=== PATIENT | female | born 1980 | race Caucasian/White ===

== ENCOUNTER → 2018-06-16 16:42 | Outpatient (CLI) | payer BC, MEDICAID, SELFPAY ==
[2018-06-16 20:11] LABS: Chlamydia Trachomatis by PCR Negative (Negative); Neisserai gonorrhoeae by PCR Negative (Negative); Probe Check PASS; Sample Adequacy Control PASS; Specimen Processing Control PASS
[2018-06-20 15:01] LABS: HPV Reflexed? NOT INDICATED
== END ==
PROVIDERS: Visit Provider Obstetrics & Gynecology
DX: Z11.3 Encounter for screening for infections with a predominantly sexual mode of transmission (principal); Z12.4 Encounter for screening for malignant neoplasm of cervix
CPT/HCPCS: 87491; 87591; 87624; 88175; G0145

== ENCOUNTER → 2018-07-12 16:04 | Outpatient (CLI) | payer BC, MEDICAID, SELFPAY ==
[2018-07-12 17:37] LABS: Color, Urine Yellow (Yellow); Glucose, Dipstick Normal (Normal); Ketone-Dipstick Negative (Negative); Leukocyte Esterase-Dipstick Negative /ul (Negative); Nitrite-Dipstick Negative (Negative); Occult Blood-Urine 50 /ul (Negative); Protein-Dipstick Negative (Negative); Specific Gravity, Urine 1.015 (1.002-1.030); Urine Bilirubin Dipstick Negative (Negative); Urine Clarity Clear (Clear); Urine Urobilinogen Normal (Normal)
[2018-07-12 17:45] LABS: Amphetamine Urine VISTA NEGATIVE (<1000 ng/mL); Barbiturate Urine VISTA NEGATIVE (< 200 ng/mL); Benzodiazepine Urine VISTA NEGATIVE (< 200 ng/mL); Cocaine Urine VISTA NEGATIVE (< 300 ng/mL); Ecstacy Urine VISTA NEGATIVE (< 500 ng/mL); Methadone Urine VISTA NEGATIVE (< 300 ng/mL); PCP Urine VISTA NEGATIVE (< 25 ng/mL); THC Urine VISTA NEGATIVE (< 50 ng/mL); Vista UDS pH Range 7
[2018-07-12 17:47] LABS: Absolute Lymphocyte Count 2.65 X10^3/ul (0.83-4.51); Basophil# 0.02 X10^3/uL; Basophil% 0.1 % (0-1); Eosinophil# 0.17 X10^3/uL; Eosinophils% 1.2 % (0-5); Hematocrit 37.5 % (37-47); Hemoglobin 12.6 g/dl (12.0-15.0); Lymphocyte # 2.65 X10^3/ul (4.0); Lymphocyte % 19.4 % (19-41); Mean Corp Hgb Conc 33.6 g/gl (32-36); Mean Corpuscular Hgb 30.4 pg (27.0-32.0); Mean Corpuscular Volume 90.6 fL (81-99); Mean Platelet Vol. 10.7 fl (6.2-12.0); Monocyte# 0.71 X10^3/uL; Monocyte% 5.2 % (0-10); Neutrophil # 10.03 X10^3/uL (2.7-7.7); Neutrophil % 73.7 % (47-70); Platelet Count 261 K/mm3 (150-450); RBC Distribution Width CV 12.6 % (11.6-14.6); RBC Distribution Width SD 40.9 fl (35.1-43.9); Red Blood Count 4.14 M/mm3 (4.2-5.4); White Blood Count 13.6 K/mm3 (4.4-11.0)
[2018-07-12 17:48] LABS: POSITIVE COUNT NO; POSITIVE DIFFERENTIAL NO; POSITIVE MORPHOLOGY NO
[2018-07-12 17:59] LABS: Thyroid Stim Hormone (TSH) 1.76 uIU/mL (0.358-3.74)
[2018-07-12 18:40] LABS: HIV - WCH Non-Reactive (Nonreactive); Rubella IgG 145.7 IU/mL
[2018-07-14 07:39] LABS: Prenatal RPR NONREACTIVE (NONREACTIVE)
[2018-07-14 11:13] LABS: HEPATITIS B SURFACE AG Negative (Negative); Hep C Antibodies <0.1 s/co ratio (0.0-0.9)
== END ==
PROVIDERS: Visit Provider Obstetrics & Gynecology
DX: Z34.82 Encounter for supervision of other normal pregnancy, second trimester (principal)
CPT/HCPCS: 36415; 80307; 81002; 84443; 85025; 86703; 86762; 86803; 87340

== ENCOUNTER → 2018-09-01 15:40 | Outpatient (CLI) | payer MEDICAID, SELFPAY | PROVIDERS: Referring Provider Obstetrics & Gynecology; Visit Provider Obstetrics & Gynecology | DX: Z34.82 Encounter for supervision of other normal pregnancy, second trimester (principal); R30.0 Dysuria; R10.9 Unspecified abdominal pain | CPT/HCPCS: 87086; 87088; 87186 ==

== ENCOUNTER → 2018-11-10 | Outpatient (CLI) | payer MEDICAID, SELFPAY ==
[2018-11-10 15:50] LABS: Hematocrit 34.5 % (37-47); Hemoglobin 11.6 g/dl (12.0-15.0); Mean Corp Hgb Conc 33.6 g/gl (32-36); Mean Corpuscular Hgb 30.4 pg (27.0-32.0); Mean Corpuscular Volume 90.3 fL (81-99); Platelet Count 260 K/mm3 (150-450); RBC Distribution Width CV 12.8 % (11.6-14.6); RBC Distribution Width SD 41.2 fl (35.1-43.9); Red Blood Count 3.82 M/mm3 (4.2-5.4); White Blood Count 12.2 K/mm3 (4.4-11.0)
[2018-11-10 15:56] LABS: Glucose Challenge Gest 1H 50g 78 mg/dL (70-140)
[2018-11-10 15:57] LABS: Scan Indicated on CBC? Y/N NO
== END | disposition home or self-care (01) ==
LOC: WOBLAB 13:02
PROVIDERS: Visit Provider Obstetrics & Gynecology
DX: Z34.83 Encounter for supervision of other normal pregnancy, third trimester (principal)
CPT/HCPCS: 36415; 82950; 85027

== ENCOUNTER → 2019-01-05 | Outpatient (CLI) | payer MEDICAID, SELFPAY | END | disposition home or self-care (01) | LOC: LABSPEC 16:34 | PROVIDERS: Visit Provider Obstetrics & Gynecology | DX: Z36.85 Encounter for antenatal screening for Streptococcus B (principal) | CPT/HCPCS: 87077; 87081; 87186 ==

== ENCOUNTER 2019-02-02 12:45 | Inpatient (IN) | payer MEDICAID, SELFPAY ==
[2019-02-02 13:16] VITALS: BMI 38.0
[2019-02-02] MEDS: Lactated Ringers 1,000 ML 50 ML IV (13:35)
[2019-02-02 13:51] LABS: Absolute Lymphocyte Count 1.92 X10^3/uL (0.83-4.51); Absolute Neutrophil Count 10.1 X10^3/uL (2.0-7.7); Basophil# 0.06 X10^3/uL; Basophil% 0.5 % (0-1); Eosinophil# 0.15 X10^3/uL; Eosinophils% 1.1 % (0-5); Hematocrit 33.3 % (37-47); Hemoglobin 10.8 g/dL (12.0-15.0); Lymphocyte # 1.92 X10^3/ul (4.0); Lymphocyte % 14.5 % (19-41); Mean Corp Hgb Conc 32.4 g/dL (32-36); Mean Corpuscular Hgb 28.3 pg (27.0-32.0); Mean Corpuscular Volume 87.2 fL (81-99); Mean Platelet Vol. 10.5 fl (6.2-12.0); Monocyte# 0.91 X10^3/uL; Monocyte% 6.9 % (0-10); NRBC Flagged by Analyzer 0 % (0-5); Neutrophil # 10.05 X10^3/uL (2.7-7.7); Neutrophil % 76.1 % (47-70); Platelet Count 261 K/mm3 (150-450); RBC Distribution Width CV 13.6 % (11.6-14.6); RBC Distribution Width SD 42.5 fl (35.1-43.9); Red Blood Count 3.82 M/mm3 (4.2-5.4); White Blood Count 13.2 K/mm3 (4.4-11.0)
[2019-02-02] MEDS: 0.9% Saline Lock 10 ML Syringe IV (22:36)
[2019-02-03] MEDS: Lactated Ringers 500 ML 999 ML IV (03:49)
[2019-02-03] MEDS: fentaNYL-bupivacaine (epidural) 100 ML BAG EPIDURAL ×4 (05:56→19:12)
[2019-02-03] MEDS: Lactated Ringers 1,000 ML 200 ML IV ×3 (07:25→20:59)
[2019-02-03] MEDS: Oxytocin 30 units/NS 500 ml 30 UNITS/500 ML IV.SOLN IV (09:17)
--- NOTE | 2019-02-03 10:29 | PCM.HP.BLA ---
History and Physical Date of Admission: 02/02/19 History of this : 38 yo female Ab1 with EDC 02/01/2019 by 7 weeks 1 day Ultrasound, presents to Labor and Delivery. care remarkable for - Oligohydramnios, Bilateral Hydrocele, BPP 01/18 40 weeks 1 day, Marginal Previa 1.4cm from cx, STEPHEN WNL and AGA at 28 weeks 1 day -- repeat u/s 32-24 wks resolved; Recent bleeding at 40+ weeks gestation; Plan Cytotec induction then AROM with Pitocin. Pertinent Past Medical History: non-smoker Allergies: Sulfa (Sulfonamide Antibiotics)Medications: During - Macrobid 100 mg capsule; phenazopyridine 200 mg tablet; 28 mg iron-800 mcg tablet; promethazine 12.5 mg tablet; Macrobid 100 mg capsule; phenazopyridine 200 mg tablet Review of Systems: Non-contributory PHYSICAL EXAMINATION General Appearence: 38 yo female in no acute distress Vital Signs: AF, VSS Heart: RRR without rubs or gallops Lungs: CTA x 2 Breasts: deferred Abdomen: gravid Pelvis: Cervix: 1-2/50/High Presentation: cephalic Fetus: Size: AGA Movement: present Heart: present Impression /Plan: Intrauterine . Preparations in progress for delivery. Plan cytotec inducion then AROM.
[2019-02-03] MEDS: Ondansetron 4 MG/2 ML Vial IV (15:16)
[2019-02-03] MEDS: Oxytocin 30 units/NS 500 ml 30 UNITS/500 ML IV.SOLN 334 UNITS IV (22:50)
--- NOTE | 2019-02-03 23:12 | PCM.OPRPT ---
Vaginal Delivery Maternal Presentation: Medically Indicated Induction Method of Induction: Cytotec Medical Reason for Induction: - - Third Trimester Bleeding at 40+ weeks gestation Amniotic Membrane Rupture Type: Artificial Amniotic Fluid Description: Clear Final PIYUSH: 02/01/19 Final PIYUSH Source: US <20 weeks Gestational age: 40 Weeks and 2 Days Date of Procedure: 02/03/19 Pre-Operative Diagnosis: IUP Post-Operative Diagnosis: IUP Surgery/ Procedure Performed: Vacuum Assisted Vaginal Delivery Type of Anesthesia: Epidural Description of Procedure: Spontaneous vaginal delivery of a viable male infant with Apgars of 8/9 from an occiput anterior presentation with clear amniotic fluid and normal three-vessel placenta. No episiotomy. First-degree midline laceration repaired with 3-0 Rapide suture under epidural anesthesia. Kiwi vacuum used x2 gentle pulls with a single low vacuum pop from low outlet to expedite delivery of the head after 3 hours of pushing and increasing maternal fatigue. Sponges okay. Delivery physician: Aleks Huff MD. Presentation: Vertex Placental Delivery Description: Spontaneous Placenta Disposition: [facility] Cord Vessel Description: 3 Vessels Cord Entanglement: Around neck x 1, tight Estimated Blood Loss: 250 cc Infant A gender: Male (1 minute): 8 (5 minute): 9 Episiotomy Description: None Laceration: Midline, 1st degree Medications given after delivery: IV Pitocin Complications: None
--- NOTE | 2019-02-03 23:15 | DCINST_ITS ---
Discharge Diet: No Restrictions Discharge Activity: May Shower, May Take a Tub Bath May resume sexual activity in: 4-6 weeks Additional Activity Instructions:: Nothing in the vagina for 4-6 weeks. You may return to work/school in 6 weeks. Call your doctor if you observe: Fever of 101 or Higher, Inability to urinate, Inability to have a bowel movement, Using more than one pad per hour Additional Instructions: If you experience any of the following, contact your healthcare provider. * Bleeding that soaks a pad every hour for 2 hours * Fever 100.4 or higher * Unrelieved incision or abdominal pain * Swelling, redness, discharge or bleeding from your incision or episiotomy site * Your incision begins to separate * Problems urinating (including inability to urinate or burning while urinating). * Visual changes * Severe headache * Flu-like symptoms * Pain or redness in one of both of your breasts * Pain, warmth, tenderness or swelling in your legs, especially the calf area * Frequent nausea and vomiting * Symptoms of depression or anxiety If you experience any of the following, call 911 or go to the nearest Emergency Room. * Chest pain * Problems breathing * Seizure activity * Partial or complete paralysis of a body part, slurred speech, weakness or drooping of the face, or a sudden inability to walk or hold your balance Allergies/Adverse Reactions: Allergies Sulfa (Sulfonamide Antibiotics) Adverse Reaction (Verified 02/02/19 13:18) Anaphylaxis Medications to take at Discharge Vits [Prenatabs FA ] 1 tab PO DAILY 02/02/19 Please Follow Up With: Aleks Huff MD - [phone] When: Call to make an appointment with your doctor in 6 weeks. Primary Care Physician: Brenna Dunne NP-C [Primary Care Provider] - Test Results: Test results from this visit will be discussed in further detail at your follow- up appointment, if applicable.
--- NOTE | 2019-02-03 23:15 | PCM.DCVAG ---
Discharge Diet: No Restrictions Discharge Activity: May Shower, May Take a Tub Bath May resume sexual activity in: 4-6 weeks Additional Activity Instructions:: Nothing in the vagina for 4-6 weeks. You may return to work/school in 6 weeks. Call your doctor if you observe: Fever of 101 or Higher, Inability to urinate, Inability to have a bowel movement, Using more than one pad per hour Additional Instructions: If you experience any of the following, contact your healthcare provider. Bleeding that soaks a pad every hour for 2 hours Fever 100.4 or higher Unrelieved incision or abdominal pain Swelling, redness, discharge or bleeding from your incision or episiotomy site Your incision begins to separate Problems urinating (including inability to urinate or burning while urinating). Visual changes Severe headache Flu-like symptoms Pain or redness in one of both of your breasts Pain, warmth, tenderness or swelling in your legs, especially the calf area Frequent nausea and vomiting Symptoms of depression or anxiety If you experience any of the following, call 911 or go to the nearest Emergency Room. Chest pain Problems breathing Seizure activity Partial or complete paralysis of a body part, slurred speech, weakness or drooping of the face, or a sudden inability to walk or hold your balance Allergies/Adverse Reactions: Allergies Sulfa (Sulfonamide Antibiotics) Adverse Reaction (Verified 02/02/19 13:18) Anaphylaxis Medications to take at Discharge Vits [Prenatabs FA ] 1 tab PO DAILY 02/02/19 Please Follow Up With: Aleks Huff MD - [phone] When: Call to make an appointment with your doctor in 6 weeks. Primary Care Physician: Brenna Dunne NP-C [Primary Care Provider] - Test Results: Test results from this visit will be discussed in further detail at your follow-up appointment, if applicable.
[2019-02-04 01:43] VITALS: BP 112/57; PULSE 90; RESP 16; TEMP 37.6
[2019-02-04 04:45] VITALS: BP 101/58; PULSE 60; RESP 14; TEMP 37.3
[2019-02-04 07:50] VITALS: BP 118/73; PULSE 81; RESP 16; TEMP 37.1; O2SAT 97
[2019-02-04] MEDS: Ibuprofen 600 MG Tablet PO ×2 (08:03→16:01)
--- NOTE | 2019-02-04 11:34 | PCM.PN.OB ---
Subjective: Patient without complaints. Minimal vaginal bleeding. - Physical Exam Vital Signs Temp Pulse Resp BP Pulse Ox 98.7 F 81 16 118/73 97 02/04/19 07:50 02/04/19 07:50 02/04/19 07:50 02/04/19 07:50 02/04/19 07:50 Oxygen Delivery Method Room Air Weight: 257 lb 15.053 oz Body Mass Index (BMI) 38.0 Intake and Output for Last 24 Hours 02/02/19 02/03/19 02/04/19 23:59 23:59 23:59 Intake Total 1862.49 / 1862.49 5255.74 / 5255.74 333 / 333 Output Total 1400 / 1400 1625 / 1625 1200 / 1200 Balance 462.49 / 462.49 3630.74 / 3630.74 -867 / -867 Medical Necessity - Tobacco Use Smoking Status: Former smoker Assessment/Plan Doing well day #1 status post routine spontaneous vaginal delivery. Continuing present care.
[2019-02-04 12:42] VITALS: BP 106/56; PULSE 87; RESP 16; TEMP 36.7; O2SAT 96
[2019-02-04 16:07] VITALS: BP 117/72; PULSE 86; RESP 16; TEMP 36.8; O2SAT 97
[2019-02-04 19:45] VITALS: BP 112/68; PULSE 81; RESP 18; TEMP 37.2
[2019-02-04] MEDS: Acetaminophen 500 MG Tablet 1000 MG PO (19:47)
[2019-02-05 02:55] VITALS: BP 117/62; PULSE 85; RESP 18; TEMP 37.2
[2019-02-05] MEDS: Ibuprofen 600 MG Tablet PO (07:38)
[2019-02-05] MEDS: Senna/Docusate Sodium 1 Tablet PO (07:39)
[2019-02-05 07:48] VITALS: BP 108/71; PULSE 80; RESP 18; TEMP 36.7
--- NOTE | 2019-02-05 11:53 | PCM.PN.OB ---
Subjective: Patient without complaints. Breast-feeding going well. Ready to go home today. - Physical Exam Vital Signs Temp Pulse Resp BP Pulse Ox 98.1 F 80 18 108/71 97 02/05/19 07:48 02/05/19 07:48 02/05/19 07:48 02/05/19 07:48 02/04/19 16:07 Oxygen Delivery Method Room Air Weight: 257 lb 15.053 oz Body Mass Index (BMI) 38.0 Intake and Output for Last 24 Hours 02/03/19 02/04/19 02/05/19 23:59 23:59 23:59 Intake Total 5255.74 / 5255.74 333 / 333 Output Total 1625 / 1625 1200 / 1200 Balance 3630.74 / 3630.74 -867 / -867 Medical Necessity - Tobacco Use Smoking Status: Former smoker Assessment/Plan Doing well day #2 status post routine spontaneous vaginal delivery. Will discharge to home with routine instructions.
--- NOTE | 2019-02-05 11:54 | PCM.DC.BLA ---
Discharge Summary Date of Admission: 02/02/19 Date of Discharge: 02/05/19 Summary: Admission diagnosis: 40+ week intrauterine with vaginal bleeding and oligohydramnios Discharge diagnosis: 40+ week intrauterine with vaginal bleeding and oligohydramnios Procedure: Routine spontaneous vaginal delivery HPI: Uneventful care except as above PE: Unremarkable. Hospital Course: The patient is a 38 year old G 2 P 1 who presented to [facility] at 40+ weeks gestation for Cytotec induction. She subsequently progressed and had a spontaneous vaginal delivery without complications. Postoperatively she did well and on day #2 it was felt she was ready for discharge. Homegoing Instruction: She was instructed not to drive for several days, not to put anything in the vagina for 4 weeks, and to call the office for an appointment in 6 weeks. Discharge Medications: She is to continue vitamins and iron - Physical Exam Vital Signs Temp Pulse Resp BP Pulse Ox 98.1 F 80 18 108/71 97 02/05/19 07:48 02/05/19 07:48 02/05/19 07:48 02/05/19 07:48 02/04/19 16:07 Oxygen Delivery Method Room Air Weight: 257 lb 15.053 oz Body Mass Index (BMI) 38.0 Intake and Output for Last 24 Hours 02/03/19 02/04/19 02/05/19 23:59 23:59 23:59 Intake Total 5255.74 / 5255.74 333 / 333 Output Total 1625 / 1625 1200 / 1200 Balance 3630.74 / 3630.74 -867 / -867
[2019-02-05 12:25] VITALS: BP 110/72; PULSE 84; RESP 16; TEMP 36.8
== END 2019-02-05 12:25 | disposition home or self-care (01) | DRG 560 ==
PROVIDERS: Admitting Provider Obstetrics & Gynecology; Family Provider Nurse Practitioner Family; PCP Nurse Practitioner Family; Referring Provider Obstetrics & Gynecology; Visit Provider Obstetrics & Gynecology
DX: O75.81 Maternal exhaustion complicating labor and delivery (principal); Z3A.40 40 weeks gestation of pregnancy; Z37.0 Single live birth; O70.0 First degree perineal laceration during delivery; Z87.891 Personal history of nicotine dependence; O41.00X0 Oligohydramnios, unspecified trimester, not applicable or unspecified
CPT/HCPCS: 59025; 59050; 85025; 86850; 86900; 86901; 99218; J7120; A4216; G0378; J2405

== ENCOUNTER → 2020-03-19 | Outpatient (CLI) | payer MEDICAID, SELFPAY ==
[2020-03-23 15:29] LABS: HPV Reflexed? NOT INDICATED
== END | disposition home or self-care (01) ==
LOC: LABSPEC 14:53
PROVIDERS: PCP Nurse Practitioner Family; Visit Provider Obstetrics & Gynecology
DX: Z12.4 Encounter for screening for malignant neoplasm of cervix (principal)
CPT/HCPCS: 88175; G0145

== ENCOUNTER 2021-09-24 15:02 | Outpatient (CLI) | payer MEDICAID, SELFPAY ==
[2021-09-24 17:26] LABS: Absolute Lymphocyte Count 3.24 X10^3/uL (0.83-4.51); Absolute Neutrophil Count 11.6 X10^3/uL (2.0-7.7); Basophil# 0.08 X10^3/uL; Basophil% 0.5 % (0-1); Eosinophil# 0.26 X10^3/uL; Eosinophils% 1.6 % (0-5); Hematocrit 36.8 % (37-47); Hemoglobin 12.3 g/dL (12.0-15.0); Lymphocyte # 3.24 X10^3/ul (0.83-4.51); Lymphocyte % 20.2 % (19-41); Mean Corp Hgb Conc 33.4 g/dL (32-36); Mean Corpuscular Hgb 29.6 pg (27.0-32.0); Mean Corpuscular Volume 88.7 fL (81-99); Mean Platelet Vol. 10.6 fl (6.2-12.0); Monocyte# 0.81 X10^3/uL; Monocyte% 5.1 % (0-10); NRBC Flagged by Analyzer 0 % (0-5); Neutrophil # 11.58 X10^3/uL (2.7-7.7); Neutrophil % 72.3 % (47-70); Platelet Count 250 K/mm3 (150-450); RBC Distribution Width CV 12.7 % (11.6-14.6); RBC Distribution Width SD 41.3 fl (35.1-43.9); Red Blood Count 4.15 M/mm3 (4.2-5.4)
[2021-09-25 08:47] LABS: HIV - WCH Non-Reactive (Nonreactive); Hepatitis B Surface Antigen Non-Reactive (Nonreactive); Hepatitis C Antibody Non-Reactive (Nonreactive); Rubella IgG Reactive (Nonreactive); Syphilis Antibodies Non-reactive
[2021-09-27 08:12] LABS: Chlamydia By Nucleic Acid AMP Negative (Negative)
[2021-09-27 15:48] LABS: Gonococcus By Nucleic Acid AMP Negative (Negative)
== END 2021-09-24 23:59 | disposition home or self-care (01) ==
LOC: WOBLAB 15:08
PROVIDERS: PCP Nurse Practitioner Family; Referring Provider Obstetrics & Gynecology; Visit Provider Obstetrics & Gynecology
DX: Z34.81 Encounter for supervision of other normal pregnancy, first trimester (principal)
CPT/HCPCS: 36415; 85025; 86703; 86762; 86780; 86803; 87086; 87088; 87186; 87340; 87491; 87591

== ENCOUNTER → 2021-11-02 | Outpatient (CLI) | payer MEDICAID, SELFPAY ==
[2021-11-02 10:36] LABS: Glucose Challenge Gest 1H 50g 90 mg/dL (70-140)
== END | disposition home or self-care (01) ==
LOC: WOBLAB 08:44
PROVIDERS: PCP Nurse Practitioner Family; Visit Provider Obstetrics & Gynecology
DX: Z34.81 Encounter for supervision of other normal pregnancy, first trimester (principal)
CPT/HCPCS: 36415; 82950

== ENCOUNTER → 2022-02-01 | Outpatient (CLI) | payer MEDICAID, SELFPAY ==
[2022-02-01 17:13] LABS: Absolute Neutrophil Count 9.8 X10^3/uL (2.0-7.7); Basophil# 0.06 X10^3/uL; Basophil% 0.4 % (0-1); Eosinophil# 0.25 X10^3/uL; Eosinophils% 1.8 % (0-5); Hematocrit 34.4 % (37-47); Hemoglobin 11.7 g/dL (12.0-15.0); Lymphocyte % 17.7 % (19-41); Mean Corpuscular Hgb 31.1 pg (27.0-32.0); Mean Corpuscular Volume 91.5 fL (81-99); Mean Platelet Vol. 10.2 fl (6.2-12.0); Monocyte% 6.6 % (0-10); NRBC Flagged by Analyzer 0 % (0-5); Neutrophil # 9.83 X10^3/uL (2.7-7.7); Neutrophil % 72.7 % (47-70); Platelet Count 267 K/mm3 (150-450); RBC Distribution Width CV 12.6 % (11.6-14.6); RBC Distribution Width SD 41.5 fl (35.1-43.9); Red Blood Count 3.76 M/mm3 (4.2-5.4); White Blood Count 13.6 K/mm3 (4.4-11.0)
[2022-02-01 17:27] LABS: Glucose Challenge Gest 1H 50g 100 mg/dL (70-140)
== END | disposition home or self-care (01) ==
PROVIDERS: PCP Nurse Practitioner Family; Visit Provider Obstetrics & Gynecology
DX: Z34.82 Encounter for supervision of other normal pregnancy, second trimester (principal)
CPT/HCPCS: 36415; 82950; 85025

== ENCOUNTER → 2022-04-16 | Outpatient (CLI) | payer MEDICAID, SELFPAY | END | disposition home or self-care (01) | LOC: LABSPEC 14:36 | PROVIDERS: PCP Nurse Practitioner Family; Visit Provider Obstetrics & Gynecology | DX: Z36.85 Encounter for antenatal screening for Streptococcus B (principal) | CPT/HCPCS: 87081 ==

== ENCOUNTER 2022-05-04 07:02 | Inpatient (IN) | payer MEDICAID, SELFPAY ==
[2022-05-04] VITALS (33 sets, daily range): BP systolic 113–144; BP diastolic 61–84; PULSE 73–143; TEMP 36.5–37.1; O2SAT 88–100; BMI 40.4
[2022-05-04] MEDS: Lactated Ringers 1,000 ML 50 ML IV (08:05)
--- NOTE | 2022-05-04 08:08 | PCM.HP.BLA ---
History and Physical Date of Admission: 05/04/22 Chief complaint: Induction of labor at term History of present illness: 41-year-old G4, P2 at 39 weeks and 0 days with PIYUSH 05/11/2022 arrives for induction of labor with AMA. Denies headache, visual changes, chest pain, shortness of breath, nausea vomit, right upper quadrant pain. Patient states good movement. is complicated by AMA Obstetric history: G1: SAB G2: Term G3: Term G4: Current Past medical history: None Medications: vitamin Allergies: Sulfa Past surgical history: D&C, skin tag removal Social history: Former smoker, denies alcohol or drug use Family history: Denies history DVT or PE Review of systems: Besides above pertinent positives a full review of systems was performed and found to be negative Physical exam: Vitals: Blood pressure 138/69 pulse 97 temperature 98.4 ?F General: Normal-appearing no acute distress HEENT: Normocephalic/atraumatic no cervical lymphadenopathy Cardiac/respiratory: No use accessory muscles, nonlabored breathing Abdomen: Soft, nontender, gravid Pelvic exam: Cervical exam 3/60/-3 Extremities: No peripheral edema normal peripheral pulses Psych: Normal affect normal demeanor nonpressured speech Labs: Pending Bedside ultrasound: Cephalic Assessment plan: 41-year-old G4, P2 at 39 weeks and 0 days for induction of labor with AMA Admit labor and delivery CEFM GBS negative Pitocin induction Anesthesia to see
[2022-05-04] MEDS: Oxytocin 15 Units/NS 250ml 15 UNITS/250 ML IV.SOLN 2 UNITS IV (08:13)
[2022-05-04 08:31] LABS: Absolute Lymphocyte Count 1.88 X10^3/uL (0.83-4.51); Absolute Neutrophil Count 9.8 X10^3/uL (2.0-7.7); Basophil# 0.05 X10^3/uL; Basophil% 0.4 % (0-1); Eosinophil# 0.32 X10^3/uL; Eosinophils% 2.5 % (0-5); Hematocrit 31.6 % (37-47); Hemoglobin 10.8 g/dL (12.0-15.0); Lymphocyte # 1.88 X10^3/ul (0.83-4.51); Lymphocyte % 14.4 % (19-41); Mean Corp Hgb Conc 34.2 g/dL (32-36); Mean Corpuscular Hgb 30.3 pg (27.0-32.0); Mean Corpuscular Volume 88.8 fL (81-99); Mean Platelet Vol. 10.6 fl (6.2-12.0); Monocyte% 6.9 % (0-10); NRBC Flagged by Analyzer 0 % (0-5); Neutrophil # 9.83 X10^3/uL (2.7-7.7); Neutrophil % 75.3 % (47-70); POSITIVE COUNT YES; RBC Distribution Width CV 13.3 % (11.6-14.6); RBC Distribution Width SD 43.7 fl (35.1-43.9); Red Blood Count 3.56 M/mm3 (4.2-5.4); White Blood Count 13.1 K/mm3 (4.4-11.0)
[2022-05-04 08:56] LABS: Differential Indicated SCAN CRITERIA MET
[2022-05-04 08:57] LABS: Platelet Estimate ADEQUATE (ADEQ)
[2022-05-04 09:30] LABS: Platelet Count 243 K/mm3 (150-450)
[2022-05-04] MEDS: LACTATED RINGERS 500 ML 999 ML IV (14:39)
[2022-05-04] MEDS: fentaNYL-bupivacaine (epidural) 100 ML BAG EPIDURAL ×2 (16:44→21:57)
--- NOTE | 2022-05-04 17:16 | PN.OBGYN_ITS ---
Subjective Subjective Comfortable with epidural Objective Data Objective Data Vital Signs: Vital Signs Temp Pulse BP Pulse Ox 98.4 F 73 123/63 H 100 05/04/22 15:55 05/04/22 16:59 05/04/22 16:59 05/04/22 16:59 Weight: 124.194 kg Body Mass Index (BMI) 40.4 Intake & Output: Intake and Output for Last 24 Hours 05/02/22 05/03/22 05/04/22 23:59 23:59 23:59 Intake Total 2066.69 / 2066.69 Output Total 2150 / 2150 Balance -83.31 / -83.31 Lab / Micro Data Result Diagrams: 05/04/22 09:20 Labs: Laboratory Results - last 24 hr 05/04/22 08:05: WBC 13.1 H, RBC 3.56 L, Hgb 10.8 L, Hct 31.6 L, MCV 88.8, MCH 30.3, MCHC 34.2, RDW Std Deviation 43.7, RDW Coeff of Aaron 13.3, Plt Count , MPV 10.6, Immature Gran % (Auto) 0.500, Neut % (Auto) 75.3 H, Lymph % (Auto) 14.4 L, [place] % (Auto) 6.9, Eos % (Auto) 2.5, Baso % (Auto) 0.4, Absolute Neuts (auto) 9.8 H, Absolute Lymphs (auto) 1.88, Nucleated RBC % 0, Platelet Estimate ADEQUATE 05/04/22 08:05: Blood Type A POSITIVE, Antibody Screen NEGATIVE 05/04/22 09:20: Plt Count 243 Physical Exam Const alert, oriented x3 and no apparent distress Resp normal respiratory effort GI soft to palpation, non-tender and non-distended Inspection: gravid Narrative: 5/60/-3 Extremity normal to inspection NST FHR Rate Baby A Baseline: 145 Variability:: Moderate Accelerations:: 15 x 15 Decelerations:: None FHR Category:: Category I Assessment & Plan (1) Advanced maternal age (AMA) in : PLAN: Continue induction of labor. Titrate Pitocin as tolerated. SROM this morning. Making cervical change. (2) Elective induction of labor planned:
[2022-05-04] MEDS: Lactated Ringers 1,000 ML 200 ML IV ×2 (17:45→22:54)
[2022-05-04] MEDS: Mag Hydrox/Al Hydrox/Simeth 30 ML UDC PO (19:36)
[2022-05-05] VITALS (71 sets, daily range): BP systolic 107–181; BP diastolic 55–84; PULSE 80–99; RESP 15; TEMP 36.2–37.6; O2SAT 84–99
[2022-05-05] MEDS: Ondansetron 4 MG/2 ML Vial IV (00:03)
[2022-05-05] MEDS: 0.9% Saline Lock 10 ML Syringe IV (00:03)
[2022-05-05] MEDS: fentaNYL-bupivacaine (epidural) 100 ML BAG EPIDURAL ×3 (02:54→14:24)
[2022-05-05] MEDS: Lactated Ringers 1,000 ML 200 ML IV ×3 (03:07→13:35)
--- NOTE | 2022-05-05 07:21 | PN.OBGYN_ITS ---
Subjective Subjective Comfortable with epidural Objective Data Objective Data Vital Signs: Vital Signs Temp Pulse BP Pulse Ox 97.9 F 91 130/70 H 98 05/05/22 06:31 05/05/22 06:31 05/05/22 06:31 05/05/22 06:31 Weight: 273 lb 12.8 oz Body Mass Index (BMI) 40.4 Intake & Output: Intake and Output for Last 24 Hours 05/03/22 05/04/22 05/05/22 23:59 23:59 23:59 Intake Total 4193.36 / 4193.36 1913.90 / 1912.90 Output Total 2350 / 2350 100 / 100 Balance 1843.36 / 1843.36 1813.90 / 1813.90 Lab / Micro Data Result Diagrams: 05/04/22 09:20 Labs: Laboratory Results - last 24 hr 05/04/22 08:05: WBC 13.1 H, RBC 3.56 L, Hgb 10.8 L, Hct 31.6 L, MCV 88.8, MCH 30.3, MCHC 34.2, RDW Std Deviation 43.7, RDW Coeff of Aaron 13.3, Plt Count , MPV 10.6, Immature Gran % (Auto) 0.500, Neut % (Auto) 75.3 H, Lymph % (Auto) 14.4 L, [place] % (Auto) 6.9, Eos % (Auto) 2.5, Baso % (Auto) 0.4, Absolute Neuts (auto) 9.8 H, Absolute Lymphs (auto) 1.88, Nucleated RBC % 0, Platelet Estimate ADEQUATE 05/04/22 08:05: Blood Type A POSITIVE, Antibody Screen NEGATIVE 05/04/22 09:20: Plt Count 243 Physical Exam Const alert, oriented x3, no apparent distress, average body habitus, healthy appearing and well nourished HEENT normocephalic and moist oral mucous membranes Eyes PERRL Neck full ROM Resp normal respiratory effort, no retractions and no use of accessory muscles GI GI Narrative: Soft, nontender, gravid Narrative: Cervical exam: 6-70/-1 Extremity normal to inspection, full ROM and no clubbing, cyanosis or edema Neuro moves all extremities and no focal motor deficits Psych mental status grossly normal, affect normal, speech normal and activity/motor behavior normal Assessment & Plan (1) : PLAN: Patient seen and examined. Cervical exam as above. Continue to titrate Pitocin
[2022-05-05] MEDS: Oxytocin 15 Units/NS 250ml 15 UNITS/250 ML IV.SOLN 14 UNITS IV (08:05)
[2022-05-05] MEDS: Methylergonovine 0.2 MG/ML Ampul IM (18:00)
--- NOTE | 2022-05-05 18:05 | EX.PCM.OBRPT ---
Vaginal Delivery Findings Description of Procedure: Normal spontaneous vaginal livery viable male infant, vertex YENI. Head and shoulders delivered with ease. Cord cut and clamped. Baby handed off to patient. Placenta delivered via cord traction and fundal massage. IV oxytocin initiated in order to facilitate uterine contractions. Second-degree midline perineal laceration noted and repaired in typical fashion. EBL 300 cc prophylactic Methergine IM given
[2022-05-05] MEDS: Oxytocin 15 Units/NS 250ml 15 UNITS/250 ML IV.SOLN 83 UNITS IV (18:19)
[2022-05-05] MEDS: Ibuprofen 600 MG Tablet PO (19:58)
[2022-05-05] MEDS: Benzocaine/Lanolin/Aloe Vera 1 SPRAY EACH TOPICAL (19:58)
[2022-05-06] MEDS: Ibuprofen 600 MG Tablet PO ×3 (03:55→22:39)
[2022-05-06 03:59] VITALS: BP 123/69; PULSE 76; RESP 15; TEMP 36.6; O2SAT 96
[2022-05-06 08:28] VITALS: BP 121/72; PULSE 72; RESP 18; TEMP 36.4
--- NOTE | 2022-05-06 09:25 | PN.OBGYN_ITS ---
Subjective Subjective No overnight complaints Objective Data Objective Data Vital Signs: Vital Signs Temp Pulse Resp BP Pulse Ox O2 Del Method 97.5 F L 72 18 121/72 H 96 Room Air 05/06/22 08:28 05/06/22 08:28 05/06/22 08:28 05/06/22 08:28 05/06/22 03:59 05/06/22 08:28 Oxygen Delivery Method Room Air Weight: 273 lb 12.8 oz Body Mass Index (BMI) 40.4 Intake & Output: Intake and Output for Last 24 Hours 05/04/22 05/05/22 05/06/22 23:59 23:59 23:59 Intake Total 4193.36 / 4193.36 5588.30 / 5588.30 Output Total 2350 / 2350 2200 / 2200 600 / 600 Balance 1843.36 / 1843.36 3388.30 / 3388.30 -600 / -600 Lab / Micro Data Result Diagrams: 05/04/22 09:20 Physical Exam Const alert, oriented x3, no apparent distress, average body habitus, healthy appearing and well nourished HEENT normocephalic and moist oral mucous membranes Eyes PERRL Resp normal respiratory effort, no retractions and no use of accessory muscles GI GI Narrative: Soft, nontender, uterus firm and below umbilicus Extremity normal to inspection, full ROM and no clubbing, cyanosis or edema Neuro moves all extremities and no focal motor deficits Psych mental status grossly normal, affect normal, speech normal and activity/motor behavior normal Assessment & Plan (1) Vaginal delivery: PLAN: day 1. Breast-feeding. Pain well controlled. Okay to discharge home today if okay with audiometrist
[2022-05-06 12:29] VITALS: BP 104/59; PULSE 76; RESP 18; TEMP 36.2
[2022-05-06 16:56] VITALS: BP 110/50; PULSE 78; RESP 18; TEMP 36.7
[2022-05-06 20:01] VITALS: BP 117/67; PULSE 81; RESP 16; TEMP 36.9
[2022-05-07 02:12] VITALS: BP 119/53; PULSE 70; RESP 16; TEMP 36.8
--- NOTE | 2022-05-07 05:25 | PCM.DC.BLA ---
Discharge Summary Date of Admission: 05/04/22 Date of Discharge: 05/06/22 Summary: Patient arrived on 05/04/2022 for induction of labor at term. AMA. Patient subsequently delivered on 05/05/2022 vaginal delivery. Routine recovery. Discharge home on 05/06/2022 Meaningful Use Info Meaningful Use Diagnoses (Choose all that apply): None applicable Discharge Plan Admission Admit Date/Time: 05/04/22 07:02 Primary Reason for Your Visit: Induction of labor Attending Provider: Adrian Salcido Primary Care Provider: Brenna Dunne NP Instructions Additional Instructions / Restrictions: Regular diet. Weightbearing as tolerated. Okay to shower. No tub baths for 2 weeks. No intercourse for 4 to 6 weeks. Call if fevers, chills, chest pain, shortness of breath. Follow-up 4 to 6 weeks Discharge Orders/Prescriptions Prescriptions: No Action vit,[id number] 1 TABLET tablet 1 tab PO DAILY Referrals / Follow Up: Brenna Dunne NP, CHIEF YEOMAN-C [Primary Care Provider] - Disposition Disposition (needs filled in before D/C Order can be placed): Home, Self Care
[2022-05-07 08:20] VITALS: BP 141/65; PULSE 74; RESP 16; TEMP 36.8; O2SAT 100
--- NOTE | 2022-05-07 08:37 | PCM.PN.OB ---
Subjective Subjective No overnight complaint Objective Data Objective Data Vital Signs: Vital Signs Temp Pulse Resp BP Pulse Ox O2 Del Method 98.2 F 70 16 119/53 L 96 Room Air 05/07/22 02:12 05/07/22 02:12 05/07/22 02:12 05/07/22 02:12 05/06/22 03:59 05/06/22 16:56 Oxygen Delivery Method Room Air Weight: 273 lb 12.8 oz Body Mass Index (BMI) 40.4 Intake & Output: Intake and Output for Last 24 Hours 05/05/22 05/06/22 05/07/22 23:59 23:59 23:59 Intake Total 5588.30 / 5588.30 Output Total 2200 / 2200 600 / 600 Balance 3388.30 / 3388.30 -600 / -600 Lab / Micro Data Result Diagrams: 05/04/22 09:20 Physical Exam Const alert, oriented x3, no apparent distress, average body habitus, healthy appearing and well nourished HEENT normocephalic and moist oral mucous membranes Eyes PERRL Neck full ROM Resp normal respiratory effort, no retractions and no use of accessory muscles GI GI Narrative: Soft, nontender, uterus firm and below umbilicus Extremity normal to inspection, full ROM and no clubbing, cyanosis or edema Neuro moves all extremities and no focal motor deficits Psych mental status grossly normal, affect normal, speech normal and activity/motor behavior normal Assessment & Plan (1) Vaginal delivery: PLAN: day 2. Breast-feeding. Pain well controlled. Okay to discharge home today
== END 2022-05-07 09:55 | disposition home or self-care (01) | DRG 560 ==
PROVIDERS: Admitting Provider Obstetrics & Gynecology; PCP Nurse Practitioner Family; Referring Provider Obstetrics & Gynecology; Visit Provider Obstetrics & Gynecology
DX: O70.1 Second degree perineal laceration during delivery (principal); Z37.0 Single live birth; Z3A.39 39 weeks gestation of pregnancy; Z87.891 Personal history of nicotine dependence
CPT/HCPCS: 59025; 59050; 85025; 85049; 86850; 86900; 86901; 99218; J7120; A4216; G0378; J2405

== ENCOUNTER → 2022-12-06 | Outpatient (CLI) | payer MEDICAID, SELFPAY ==
[2022-12-10 12:09] LABS: HPV APTIMA, High Risk Negative (Negative)
== END | disposition home or self-care (01) ==
LOC: LABSPEC 15:17
PROVIDERS: PCP Nurse Practitioner Family; Visit Provider Nurse Practitioner Women's Health
DX: Z12.4 Encounter for screening for malignant neoplasm of cervix (principal)
CPT/HCPCS: 87624; 88175; G0145